=== PATIENT | female | born 1980 | race Caucasian/White ===

== ENCOUNTER 2022-08-20 18:57 | Emergency (ER) | payer SELFPAY ==
[~2022-08-20] VITALS: Ht 172.7 cm; Wt 83.9 kg
--- NOTE | 2022-08-20 19:24 | ED GU-Female ---
General Chief Complaint: - Reproductive Stated Complaint: VAG BLEEDING Source: patient Exam Limitations: no limitations History of Present Illness Date Seen by Provider: Aug 20, 2022 Time Seen by Provider: 19:24 Initial Comments Patient is a 41-year-old female who presents to the emergency department today with a chief complaint of heavy vaginal bleeding onset 14 days ago. Patient states that she had an episode last summer in November where she "hemorrhaged". She was not exactly sure why she blood so heavily but relates it to having a COVID infection. She states she does have a fibroid on her uterus. She also has a history of Crohn's disease. She is currently on no medications. She does smoke heavily. After her episode last summer she followed up with the health department and was not started on control secondary to her smoking. She did have a Pap smear at that time. She states she feels a little lightheaded. No shortness of breath. No nausea or vomiting. No dysuria, urgency or frequency. She denies risk of as she does not engage in activities with men. No recent bloody stool. No other complaints of illness or injury. Timing/Duration: other (2 weeks) Severity/Quality: severe, cramping Radiation: none Activities at Onset: physical activity Sexual [place] History: single partner (female) Associated Symptoms: other (Slightly lightheaded with position change) Allergies and Home Medications Allergies Coded Allergies: No Known Drug Allergies (Unverified , 08/20/22) Patient Home Medication List Home Medication List Reviewed: Yes Review of Systems Review of Systems Constitutional: see HPI EENTM: no symptoms reported Respiratory: no symptoms reported Cardiovascular: no symptoms reported Gastrointestinal: no symptoms reported Genitourinary: other (Vaginal bleeding) LMP: Aug 06, 2022 Musculoskeletal: no symptoms reported Skin: no symptoms reported All Other Systemes Reviewed Negative Unless Noted: Yes Past Adxvrzp-Yoznrk-Zcbwzo Hx Patient Social History Tobacco Use?: Yes Tobacco type used: Cigarettes Smoking Status: Current Everyday Smoker Use of E-Cig and/or Vaping dev: No Substance use?: Yes Substance type: Marijuana Alcohol Use?: No Immunizations Up To Date Influenza Vaccine Up-to-Date: No; Not Current First/Initial COVID19 Vaccinat: NONE Second COVID19 Vaccination Dejon: NONE Third COVID19 Vaccination Date: NONE COVID19 Vaccine [employer]: NONE Physical Exam Vital Signs Vital Signs - First Documented 08/20/22 19:12 Temp 36.4 Pulse 83 Resp 20 B/P (MAP) 131/89 (103) Pulse Ox 96 O2 Delivery Room Air Capillary Refill : Height, Weight, BMI Height: '" Weight: lbs. oz. kg; BMI Method: General Appearance: WD/WN, no apparent distress HEENT: PERRL/EOMI Neck: full range of motion Cardiovascular: regular rate, rhythm Respiratory: lungs clear, normal breath sounds, no respiratory distress, no accessory muscle use, wheezing (Faint scattered expiratory wheeze) Gastrointestinal: normal bowel sounds, non tender, soft Pelvic: other (Deferred) Extremities: normal range of motion, normal inspection, no pedal edema Neurologic/Psychiatric: alert, normal mood/affect, oriented x 3 Skin: normal color, warm/dry Progress/Results/Core Measures Suspected Sepsis SIRS Temperature: Pulse: Respiratory Rate: Laboratory Tests 08/20/22 20:02: White Blood Count 7.8 Blood Pressure / Mean: Laboratory Tests 08/20/22 20:02: Creatinine 0.85, Platelet Count 374 Results/Orders Lab Results Laboratory Tests Test 08/20/22 20:02 Range/Units White Blood Count 7.8 4.3-11.0 10^3/uL Red Blood Count 4.30 3.80-5.11 10^6/uL Hemoglobin 12.9 11.5-16.0 g/dL Hematocrit 38 35-52 % Mean Corpuscular Volume 88 80-99 fL Mean Corpuscular Hemoglobin 30 25-34 pg Mean Corpuscular Hemoglobin Concent 34 32-36 g/dL Red Cell Distribution Width 13.7 10.0-14.5 % Platelet Count 374 130-400 10^3/uL Mean Platelet Volume 10.4 9.0-12.2 fL Immature Granulocyte % (Auto) 0 % Neutrophils (%) (Auto) 59 42-75 % Lymphocytes (%) (Auto) 31 12-44 % Monocytes (%) (Auto) 7 0-12 % Eosinophils (%) (Auto) 2 0-10 % Basophils (%) (Auto) 1 0-10 % Neutrophils # (Auto) 4.6 1.8-7.8 X 10^3 Lymphocytes # (Auto) 2.4 1.0-4.0 X 10^3 Monocytes # (Auto) 0.6 0.0-1.0 X 10^3 Eosinophils # (Auto) 0.2 0.0-0.3 10^3/uL Basophils # (Auto) 0.1 0.0-0.1 10^3/uL Immature Granulocyte # (Auto) 0.0 0.0-0.1 10^3/uL Sodium Level 139 135-145 MMOL/L Potassium Level 3.8 3.6-5.0 MMOL/L Chloride Level 109 H 98-107 MMOL/L Carbon Dioxide Level 21 21-32 MMOL/L Anion Gap 9 5-14 MMOL/L Blood Urea Nitrogen 13 7-18 MG/DL Creatinine 0.85 0.60-1.30 MG/DL Estimat Glomerular Filtration Rate 88 BUN/Creatinine Ratio 15 Glucose Level 87 70-105 MG/DL Calcium Level 8.6 8.5-10.1 MG/DL My Orders Orders - KARLA HOWARD MD Ed Iv/Invasive Line Start (08/20/22 19:31) Cbc With Automated Diff (08/20/22 19:31) Basic Metabolic Panel (08/20/22 19:31) Naproxen Tablet (Naprosyn Tablet) (08/20/22 19:45) Medications Given in ED Current Medications Medications Dose Ordered Sig/Marta Route Start Time Stop Time Status Last Admin Dose Admin Naproxen 500 mg ONCE ONCE PO 08/20/22 19:45 08/20/22 19:46 DC 08/20/22 19:45 500 MG Vital Signs/I&O 08/20/22 19:12 Temp 36.4 Pulse 83 Resp 20 B/P (MAP) 131/89 (103) Pulse Ox 96 O2 Delivery Room Air Capillary Refill : Departure Impression Primary Impression: Menorrhagia Qualified Codes: N92.0 - Excessive and frequent menstruation with regular cycle Disposition: HOME, SELF-CARE Condition: Stable Departure-Patient Inst. Decision time for Depature: 20:32 Referrals: NO,LOCAL PHYSICIAN (PCP) Primary Care Physician Patient Instructions: Heavy Periods ED Add. Discharge Instructions: Start an rtzs-oyy-[id number] iron supplement such as "Vitron C" daily. Drink plenty of fluids to stay well-hydrated. Also eyhg-kra-jsjamas generic naproxen 2 tablets which is 500 mg twice a day for cramping and bleeding as well. Tranexamic acid tablets 650 mg, 2 pills 3 times a day for 5 days will help slow down your bleeding When you get home you should call and follow-up with an [employer] or family medicine doctor to help regulate your periods or look further into the fibroid that you have. Return to the emergency department for any new, concerning or emergent complaints. All discharge instructions reviewed with patient and/or family. Voiced understanding. Scripts Tranexamic Acid (Tranexamic Acid) 650 Mg Tablet 1300 MG PO TID for 5 Days, #30 TAB Prov: KARLA HOWARD MD 08/20/22 KARLA HOWARD MD Aug 20, 2022 19:24
[2022-08-20] MEDS ORDERED: NAPROXEN 250 MG (NAPROSYN) TABLET PO ONE (19:45)
[2022-08-20 20:07] LABS: POTASSIUM 3.8 MMOL/L (3.6-5.0)
[2022-08-20 20:08] LABS: CALCIUM 8.6 MG/DL (8.5-10.1)
[2022-08-20 20:13] LABS: CREATININE SERUM 0.85 MG/DL (0.60-1.30)
[2022-08-20 20:17] LABS: BASOPHILS # (AUTO) 0.1 10^3/uL (0.0-0.1); BASOPHILS % (AUTO) 1 % (0-10); EOSINOPHILS # (AUTO) 0.2 10^3/uL (0.0-0.3); EOSINOPHILS % (AUTO) 2 % (0-10); HEMATOCRIT 38 % (35-52); HEMOGLOBIN 12.9 g/dL (11.5-16.0); LYMPHOCYTES # (AUTO) 2.4 X 10^3 (1.0-4.0); LYMPHOCYTES % (AUTO) 31 % (12-44); MEAN CORPUSCULAR HEMOGLOBIN 30 pg (25-34); MEAN CORPUSCULAR HGB CONC 34 g/dL (32-36); MEAN CORPUSCULAR VOLUME 88 fL (80-99); MEAN PLATELET VOLUME 10.4 fL (9.0-12.2); MONOCYTES # (AUTO) 0.6 X 10^3 (0.0-1.0); MONOCYTES % (AUTO) 7 % (0-12); NEUTROPHILS # (AUTO) 4.6 X 10^3 (1.8-7.8); NEUTROPHILS % (AUTO) 59 % (42-75); PLATELET COUNT 374 10^3/uL (130-400); WHITE BLOOD COUNT 7.8 10^3/uL (4.3-11.0)
[2022-08-20] MEDS ORDERED: TRAN650T5 PO (20:34)
[2022-08-20 20:45] VITALS: BP 122/71
== END 2022-08-20 20:45 | disposition home or self-care (01) ==
LOC: ER 19:03
DX: N92.0 Excessive and frequent menstruation with regular cycle (principal); F17.210 Nicotine dependence, cigarettes, uncomplicated; Z28.310 Unvaccinated for COVID-19
CPT/HCPCS: 36415; 80048; 85025